=== PATIENT | female | born 1960 | race Caucasian/White ===

== ENCOUNTER 2020-01-22 16:58 | Inpatient (IN) | payer MEDICARE, MEDICAID, OTHER ==
[~2020-01-22 16:58] MED LIST: EPINEPHrine 1 MG/10 ML Abboject SYRINGE ONE; Heparin 1,000 UNITS/ML VIAL ONE
[2020-01-22] MEDS ORDERED: Rocuronium Bromide 10 MG/ML (10ML VIAL) ONE (17:15)
[2020-01-22] MEDS ORDERED: Ketamine 50 MG/ML (10ML VIAL) ONE (17:15)
--- NOTE | 2020-01-22 17:24 | CT ---
CT BRAIN: Date: 01-22-2020 Provided Clinical History: Altered mental status. FINDINGS: The ventricular system appears normal in size and morphology. There is no evidence for intracranial h emorrhage or mass effect. The extracranial soft tissues and osseous structures demonstrate an unremar kable CT appearance. IMPRESSION: No evidence for intracranial hemorrhage or mass effect. POS: ODALYS
[2020-01-22] MEDS ORDERED: Norepinephrine 8 MG/0.9% NS 250 ML ONE (17:37)
[2020-01-22] MEDS ORDERED: Acetaminophen 650 MG Suppository ONE (17:46)
[2020-01-22] MEDS ORDERED: Tranexamic Acid 1,000 MG/10 ML VIAL ONE (17:48)
[2020-01-22] MEDS ORDERED: Pantoprazole 40 MG VIAL ONE (17:48)
[2020-01-22 17:58] LABS: Actual Bicarbonate (HCO3a) 25.3 mEq/L (22-28); CO2 Tension 39.5 mmHg (35.0-45.0); Calcium, Ionized (arterial) 1.06 mmol/L (1.12-1.30); Hemoglobin (Hb) 13.1 g/dL (12.0-16.0); O2 Tension (PaO2), arterial 107.4 mmHg (> 80.0); Potassium - ABG Lab 3.85 mmol/L (3.70-5.30); Puncture Site LBA; pH, Arterial 7.43 (7.35-7.45)
[2020-01-22] MEDS ORDERED: Cefepime 2 GM VIAL ONE (18:00)
[2020-01-22] MEDS ORDERED: Octreotide Acetate 1,250 MCG in Sodium Chloride 0.9% 250 ML 250 ML IVPB SCH (18:00)
[2020-01-22 18:04] LABS: ALV-art Gradient 199.725 (0-20)
[2020-01-22 18:24] LABS: Mean Corpuscular HGB CONC 32.3 g/dL (32.0-36.0); Mean Corpuscular Hemoglobin 29.5 pg (27.0-31.0); Mean Corpuscular Volume 91.3 fL (78.0-98.0); Mean Platelet Volume 8.1 fL (7.4-10.4); Platelet Count 542 thou/uL (130-400); RBC Distribution Width 13.3 % (11.5-14.5); Red Blood Cell (RBC) Count 3.71 mill/uL (4.20-5.40); White Blood Cell (WBC) Count 22.5 thou/uL (4.8-10.8)
[2020-01-22 18:25] LABS: INR-International Normal Ratio 1.4; PTT 28.3 sec (22.9-36.1); Prothrombin Time 17.3 sec (12.0-14.7)
--- NOTE | 2020-01-22 18:26 | RAD ---
PORTABLE CHEST: Date: 01-22-2020 Provided Clinical History: Dyspnea FINDINGS: Comparison 01-07-2020. Cardiac and mediastinal silhouette is unchanged in appearance. Vascular calcifications involving the aortic arch. Endotracheal tube is noted, the tip of which projects proximal to the azucena. Enteric ca theter is noted, the tip of which overlies the left upper quadrant. No focal consolidation, pleural f luid, or pneumothorax apparent with limitations due to the supine nature of the study. IMPRESSION: No evidence for an acute cardiopulmonary process. POS: OADLYS
[2020-01-22 18:40] LABS: ALT (SGPT) Less than 7 U/L (8-55); AST (SGOT) 5 U/L (5-34); Albumin 2.3 g/dL (3.5-5.0); Alkaline Phosphatase 87 U/L (40-110); Anion Gap 19 mmol/L (10-20); BUN (Urea Nitrogen) 32 mg/dL (9.8-20.1); Bilirubin, Total 0.6 mg/dL (0.2-1.2); CK (CPK) 12 U/L (29-168); Calc. Creatinine Clearance 0 mL/min (70-130); Calcium 6.7 mg/dL (7.8-10.44); Carbon Dioxide 19 mmol/L (22-29); Chloride 112 mmol/L (98-107); Estimated GFR-MDRD 20; Globulin 2.2 g/dL (2.4-3.5); Potassium 3.1 mmol/L (3.5-5.1); Protein, Total 4.5 g/dL (6.0-8.3); Sodium 147 mmol/L (136-145)
[2020-01-22 18:43] LABS: Glucose 481 mg/dL (70-105)
[2020-01-22 18:48] LABS: Band 17 % (5-11); Lymphocytes 3 % (21-51); MDiff Complete? YES; Monocytes 11 % (0-10); Neutrophil 69 % (42-75); Platelet Morphology Comment Appears Increased; Polychromasia SLIGHT = 2-3 cells (100X) (0-2/hpf)
[2020-01-22 18:50] LABS: Bacteria/HPF 2+ HPF (None Seen); Bilirubin Negative (Negative); Blood, Urine 2+ (Negative); Clarity Extra Turbid (Clear); Glucose, Urine (Dipstick) 500 mg/dL (Negative); Ketone, Urine Trace mg/dL (Negative); Leukocyte 500 Leu/uL (Negative); Nitrite Negative (Negative); Protein, Urine (Dipstick) 600 mg/dL (Neg-Trace); RBC/HPF Greater than 50 HPF (0-3); Squamous Epithelial 0-3 HPF (0-3); Urobilinogen Normal mg/dL (Less than 2); WBC/HPF Greater than 50 HPF (0-3); pH, Urine 6.5 (5.0-9.0)
[2020-01-22 19:04] LABS: CKMB 0.4 ng/mL (0-6.6)
[2020-01-22] MEDS ORDERED: Potassium Chloride 20 MEQ TAB ONE (19:10)
[2020-01-22] MEDS ORDERED: Electrolyte Replacement Protoc 1 EACH EACH IVPB PRN (20:53)
[2020-01-22] MEDS ORDERED: Norepinephrine 8 MG/0.9% NS 250 ML IVPB PRN (20:53)
[2020-01-22] MEDS ORDERED: Ventilator Sedation Protocol 1 EACH FS SCH (20:53)
[2020-01-22] MEDS ORDERED: Morphine 2 MG/ML SYRINGE SLOW IVP PRN (20:57)
[2020-01-22] MEDS ORDERED: Propofol BOLUS 1,000 MG/100 ML VIAL IV PRN (20:57)
[2020-01-22] MEDS ORDERED: DISCONTINUE PREVIOUS NARCOTIC PAIN MEDICATIONS AND BENZODIAZEPINES FS SCH (20:57)
[2020-01-22] MEDS ORDERED: fentaNYL Citrate/PF 2,000 MCG in Sodium Chloride 0.9% 60 ML IV SCH (20:57)
[2020-01-22] MEDS ORDERED: Lorazepam 2 MG/ML VIAL SLOW IVP PRN (20:57)
[2020-01-22] MEDS ORDERED: Fentanyl BOLUS 250 ML IVPB PRN (20:57)
[2020-01-22] MEDS ORDERED: Potassium Phosphate 9 MMOL in Sodium Chloride 0.9% 100 ML IVPB PRN (20:59)
[2020-01-22] MEDS ORDERED: Magnesium 2 GM/50 ML 2 GM in Premix Bag 1 BAG IVPB PRN (20:59)
[2020-01-22] MEDS ORDERED: Potassium Phosphate 15 MMOL in Sodium Chloride 0.9% 250 ML 250 ML IV PRN (20:59)
[2020-01-22] MEDS ORDERED: Potassium Chloride 40 MEQ in Premix Bag 1 BAG IVPB PRN (20:59)
[2020-01-22] MEDS ORDERED: Potassium Chloride 40 MEQ in Sodium Chloride 0.9% 250 ML 250 ML IVPB PRN (20:59)
[2020-01-22] MEDS ORDERED: PHOS-NAK 1 PKT PACK PO PRN ×2 (20:59)
[2020-01-22] MEDS ORDERED: Magnesium Oxide 400 MG TAB PO PRN ×2 (20:59)
[2020-01-22] MEDS ORDERED: Potassium Phosphate 12 MMOL in Sodium Chloride 0.9% 250 ML 250 ML IV PRN (20:59)
[2020-01-22] MEDS ORDERED: ELECTROLYTE REPLACEMENT PROTOCOL FS PRN (20:59)
[2020-01-22] MEDS ORDERED: Potassium Chloride 20 MEQ TAB PO PRN (20:59)
[2020-01-22] MEDS ORDERED: HUMULIN R 100 UNITS in Sodium Chloride 0.9% 100 ML IVPB SCH (21:15)
[2020-01-22 21:36] LABS: Actual Bicarbonate (HCO3a) 20.6 mEq/L (22-28); Base Excess (BEa) -0.7 mEq/L (-2.0 to +3.0); Calcium, Ionized (arterial) 1.02 mmol/L (1.12-1.30); Carboxyhemoglobin (COHb) 0.9 gm% (0.0-3.0); O2 Tension (PaO2), arterial 87.5 mmHg (> 80.0); Potassium - ABG Lab 3.39 mmol/L (3.70-5.30); pH, Arterial 7.53 (7.35-7.45)
[2020-01-22] MEDS: fentaNYL Citrate/PF 2,000 MCG in Sodium Chloride 0.9% 60 ML IV SCH (21:38)
--- NOTE | 2020-01-22 21:44 | PDOC.HHP ---
Hospitalist HPI - History of Present Illness uncounscious History of Present Illness: Patient has duplicate chart. H&P based on EMS report, ED report because patient unresponsive and could not reach family. 59yo F w/ MHx of recurrent admission for nausea/vomitting associated with diabetic gastroparesis, gastritis, duodenitis, DJD; CVA with residual left weakness, CAD s/p stent placement, medication nonadherence who was brought by EMS after found her unconscious foaming from the mouth. Based on report , patient was at baseline at around 4pm. At 5pm, was found by unconscious, foaming from mouth, so EMS was called. 80% on room air, started on nonrebreather and brought to the ED. On encounter intubated and not responsive despite not being sedated. ED Course: In the ED, unresponsive, hypotensive, intubated, central and arterial lines placed, initially on levophed but after IVF HD stable without pressors. OGT yielded 1.1L of dark fluid. She was admisnitered octreotide and admitted to the ICU for further management. Hospitalist ROS - Review of Systems ROS unobtainable: due to mental status - Medication Medications: Active Medications Generic Name Dose Route Start Last Admin Trade Name Freq PRN Reason Stop Dose Admin Vancomycin HCl 2 gm/ Sodium 500 mls @ 250 mls/hr 01/22/20 18:15 01/22/20 21: 26 Chloride IVPB 01/22/20 22:00 Not Given NOW [facility] Hospitalist History - Past Medical History Source: old records (PAST MEDICAL HISTORY: 1. Diabetic gastroparesis. 2. Distal esophagitis. 3. Duodenitis. 4. Gastroesophageal reflux. 5. History of myocardial infarction. 6. Diabetes mellitus, type 2 with peripheral neuropathy. 7. Hypothyroidism. 8. Hyperlipidemia. 9. Hypertension. 10. Degenerative joint disease. 11. History of CVA with left-sided weakness. 12. Chronic obstructive pulmonary disease. 13. Chronic kidney disease. 1. Status post bilateral tubal ligation. 2. Status post cardiac catheterization. 3. Status post carpal tunnel release. 4. 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 5. Status post EGD showing esophagitis and duodenitis. CURRENT MEDICATIONS: 1. Gabapentin 1600 mg p.o. b.i.d. 2. Hydralazine 50 mg p.o. t.i.d. 3. Hydrocodone 10/325 mg 1 tablet p.o. q.6 hours p.r.n. 4. Glargine insulin 72 units subcutaneously at bedtime. 5. Atrovent HFA 2 puffs inhaled q.4 hours p.r.n. 6. DuoNeb 3 mL nebulized q.4 hours p.r.n. 7. Lorazepam 1 mg p.o. at bedtime p.r.n. 8. Metoprolol tartrate 25 mg p.o. b.i.d. 9. Singulair 10 mg p.o. b.i.d. 10. Nitroglycerin 4.1 g sprayed orally p.r.n. chest pain. 11. Pravachol 80 mg p.o. at bedtime. 12. Seroquel 100 mg p.o. at bedtime. 13. Eliquis 5 mg p.o. b.i.d. 14. Enteric-coated aspirin 81 mg p.o. daily. 15. Levothyroxine 112 mcg p.o. daily. 16. Reglan 10 mg p.o. t.i.d. p.r.n. 17. Protonix 40 mg p.o. b.i.d. ALLERGIES: 1. FENTANYL. 2. IBUPROFEN. 3. SULFA. FAMILY HISTORY: Positive for coronary artery disease and diabetes mellitus. SOCIAL HISTORY: Resides in [place], [place]. Smokes up to a pack of cigarettes daily. Occasional alcohol use. No illicit drug use. Disabled. REVIEW OF SYSTEMS: CONSTITUTIONAL: Negative for weight loss or gain, ability to conduct usual activities. SKIN: Negative for rash, itching.) - Exam General - other findings: intubated, unresponsive, morbidly obese Eye: PERRL, anicteric sclera Eye - other findings: pupils 3mm reactive to light ENT: normocephalic atraumatic Neck - other findings: no lymphadenopathy Heart: no murmur, no rubs, irregular Respiratory: CTAB, no wheezes, no rales, no ronchi Gastrointestinal: soft, non-distended, normal bowel sounds Extremities: 1+ LE edema Hospitalist Results - Labs Result Diagrams: 01/22/20 18:07 01/22/20 18:07 Lab results: WBC 22.5 thou/uL (4.8-10.8) H 01/22/20 18:07 Hgb 11.0 g/dL (12.0-16.0) L 01/22/20 18:07 Hct 33.9 % (36.0-47.0) L 01/22/20 18:07 MCV 91.3 fL (78.0-98.0) 01/22/20 18:07 Plt Count 542 thou/uL (130-400) H 01/22/20 18:07 Band Neuts % (Manual) 17 % (5-11) H 01/22/20 18:07 ABG pH 7.43 (7.35-7.45) 01/22/20 17:55 ABG pCO2 39.5 mmHg (35.0-45.0) 01/22/20 17:55 ABG pO2 107.4 mmHg (> 80.0) H 01/22/20 17:55 Sodium 147 mmol/L (136-145) H 01/22/20 18:07 Potassium 3.1 mmol/L (3.5-5.1) L 01/22/20 18:07 Chloride 112 mmol/L (98-107) H 01/22/20 18:07 Carbon Dioxide 19 mmol/L (22-29) L 01/22/20 18:07 BUN 32 mg/dL (9.8-20.1) H 01/22/20 18:07 Creatinine 2.47 mg/dL (0.6-1.1) H 01/22/20 18:07 Glucose 481 mg/dL (70-105) H 01/22/20 18:07 Lactic Acid 3.5 mmol/L (0.5-2.2) H 01/22/20 18:07 Calcium 6.7 mg/dL (7.8-10.44) L 01/22/20 18:07 Total Bilirubin 0.6 mg/dL (0.2-1.2) 01/22/20 18:07 AST 5 U/L (5-34) 01/22/20 18:07 ALT Less than 7 U/L (8-55) L 01/22/20 18:07 Alkaline Phosphatase 87 U/L (40-110) 01/22/20 18:07 Creatine Kinase 12 U/L (29-168) L 01/22/20 18:07 CK-MB (CK-2) 0.4 ng/mL (0-6.6) 01/22/20 18:07 Troponin I 0.305 ng/mL (< 0.028) H* 01/22/20 18:07 B-Natriuretic Peptide 158.4 pg/mL (0-100) H 01/22/20 18:07 Serum Total Protein 4.5 g/dL (6.0-8.3) L 01/22/20 18:07 Albumin 2.3 g/dL (3.5-5.0) L 01/22/20 18:07 Urine Ketones Trace mg/dL (Negative) A 01/22/20 17:35 Urine Blood 2+ (Negative) A 01/22/20 17:35 Urine Nitrite Negative (Negative) 01/22/20 17:35 Ur Leukocyte Esterase 500 Tanner/uL (Negative) A 01/22/20 17:35 Urine RBC Greater than 50 HPF (0-3) A 01/22/20 17:35 Urine WBC Greater than 50 HPF (0-3) A 01/22/20 17:35 Ur Squamous Epith Cells 0-3 HPF (0-3) 01/22/20 17:35 Urine Bacteria 2+ HPF (None Seen) A 01/22/20 17:35 - EKG Interpretation EKG: sinus tachycardia with PACs, RBBB (old); inferolateral and anteroseptal ST depression - Radiology Interpretation Chest x-ray Status: report reviewed by me Additional Comment: no acute cardiopulmonary process CT scan - head Status: report reviewed by me Additional Comment: no acute process Hospitalist H&P A/P - Problem (1) Sepsis Code(s): A41.9 - SEPSIS, UNSPECIFIED ORGANISM Status: Acute (2) Acute respiratory failure with hypoxia Code(s): J96.01 - ACUTE RESPIRATORY FAILURE WITH HYPOXIA Status: Acute (3) Upper GI bleed Code(s): K92.2 - GASTROINTESTINAL HEMORRHAGE, UNSPECIFIED Status: Acute (4) Aspiration pneumonia Code(s): J69.0 - PNEUMONITIS DUE TO INHALATION OF FOOD AND VOMIT Status: Acute (5) COPD (chronic obstructive pulmonary disease) Status: Acute (6) Cerebrovascular accident (CVA) with involvement of left side of body Code(s): I63.9 - CEREBRAL INFARCTION, UNSPECIFIED Status: Acute (7) Nonadherence to medication Code(s): Z91.14 - PATIENT'S OTHER NONCOMPLIANCE WITH MEDICATION REGIMEN Status : Acute - Plan Plan: #sepsis #acute encephalopathy #aspiration pneumonia/pneumonitis #complicated UTI -qSOFA 3/3 -on encounter, GCS 3; acute encephalopathy hypoxic vs. toxic vs. infectious -multiple recent presentation with nausea/vomiting due to gastroparesis; this presentation was found foaming from mouth -presented febrile Tmax 103F; UA c/w UTI -CT head and CXR showing no acute processes -well's score low risk pulmonary embolism; blood pressure responded to fluids -attempted to reach family multiple times -COVID pending -vanc, zosyn -procalcitonin -COVID PCR -serum and urine drug screens -NS IVF match I/O -follow up on cultures -pulm consulted #UGI bleed -NGT suctioned 1.1L of black fluid on presentation -HgB 11; baseline 10-11 therefore hypotension unlikely due to hypovolemia; HD stable after fluid resuscitation -unknown indication for eliquis however history of nonadherence -pantoprazole IVP 80 once, then 40mg IVP q12h -H&H q8h -IVF -GI consulted #troponinemia -EKG showing rate controlled afib with signs of inferolateral and anteroseptal ischemia -may be demand due to sepsis -hold eliquis,aspirin due to bleed -trend trop, EKG #T2DM insulin drip; goal < 180 #CAD s/p stent hold antihtn due to labile blood pressure reconcile medications #dispo/PPx -Full code. attempted to reach family. Will attempt again tomorrow -GI PPx: on therapeutic PPI -DVT PPx: SCDs due to GI bleed
[2020-01-22] MEDS ORDERED: Pantoprazole 40 MG VIAL IVP SCH (21:45)
[2020-01-22] MEDS ORDERED: Piperacillin/Tazobactam 3.375 GM in Sodium Chloride 0.9% 100 ML IVPB SCH (21:45)
[2020-01-22 21:46] LABS: CO2 Tension 25.5 mmHg (35.0-45.0); Puncture Site ART LINE
[2020-01-22 21:47] LABS: ALV-art Gradient 165.825 (0-20)
[2020-01-22] MEDS: Propofol 1,000 MG/100 ML VIAL IV PRN (22:03)
[2020-01-22] MEDS: Sodium Chloride 0.9% 1,000 ML IV SCH (23:09)
[2020-01-22 23:12] LABS: CKMB 0.9 ng/mL (0-6.6)
[2020-01-22 23:22] LABS: Lactic Acid 1.6 mmol/L (0.5-2.2)
[2020-01-22] MEDS ORDERED: Piperacillin/Tazobactam 2.25 GM in Sodium Chloride 0.9% 100 ML IVPB SCH (23:59)
[2020-01-23] MEDS ORDERED: Albuterol 200 PUFF (6.7GM INHALER) INH PRN (00:25)
[2020-01-23] MEDS ORDERED: Albuterol 200 PUFF (6.7GM INHALER) INH SCH (01:00)
[2020-01-23] MEDS: Piperacillin/Tazobactam 2.25 GM in Sodium Chloride 0.9% 100 ML IVPB SCH ×4 (05:19→21:24)
[2020-01-23 05:24] LABS: ALT (SGPT) Less than 7 U/L (8-55); AST (SGOT) 5 U/L (5-34); Albumin 2.8 g/dL (3.5-5.0); Alkaline Phosphatase 92 U/L (40-110); Anion Gap 16 mmol/L (10-20); BUN (Urea Nitrogen) 42 mg/dL (9.8-20.1); Bilirubin, Total 1.1 mg/dL (0.2-1.2); Calc. Creatinine Clearance 28 mL/min (70-130); Calcium 7.6 mg/dL (7.8-10.44); Carbon Dioxide 27 mmol/L (22-29); Chloride 110 mmol/L (98-107); Estimated GFR-MDRD 17; Globulin 2.9 g/dL (2.4-3.5); Glucose 215 mg/dL (70-105); Potassium 3.1 mmol/L (3.5-5.1); Protein, Total 5.7 g/dL (6.0-8.3); Sodium 150 mmol/L (136-145)
[2020-01-23 05:54] LABS: Hemoglobin 12.2 g/dL (12.0-16.0); Mean Corpuscular HGB CONC 34.3 g/dL (32.0-36.0); Mean Corpuscular Volume 87.6 fL (78.0-98.0); Mean Platelet Volume 8.4 fL (7.4-10.4); Platelet Count 377 thou/uL (130-400); RBC Distribution Width 13.9 % (11.5-14.5); Red Blood Cell (RBC) Count 4.06 mill/uL (4.20-5.40); White Blood Cell (WBC) Count 20.7 thou/uL (4.8-10.8)
[2020-01-23] MEDS ORDERED: Mometasone 200 MCG/Formoterol 5 MCG 120 PUFF INHALER INH SCH (06:30)
[2020-01-23 08:07] LABS: Actual Bicarbonate (HCO3a) 22.9 mEq/L (22-28); Analyzer IN Cardio OR; Base Excess (BEa) 1.6 mEq/L (-2.0 to +3.0); CO2 Tension 26.9 mmHg (35.0-45.0); Calcium, Ionized (arterial) 1.05 mmol/L (1.12-1.30); Carboxyhemoglobin (COHb) 1.5 gm% (0.0-3.0); Hemoglobin (Hb) 12.6 g/dL (12.0-16.0); O2 Tension (PaO2), arterial 71.4 mmHg (> 80.0)
[2020-01-23] MEDS: Pantoprazole 40 MG VIAL IVP SCH ×2 (08:14→21:25)
[2020-01-23] MEDS: Sodium Chloride 0.9% 1,000 ML IV SCH (08:14)
[2020-01-23 08:21] LABS: Puncture Site RRA; pH, Arterial 7.55 (7.35-7.45)
[2020-01-23 08:22] LABS: ALV-art Gradient 73.225 (0-20)
[2020-01-23 08:40] LABS: Band 3 % (5-11); Lymphocytes 7 % (21-51); MDiff Complete? YES; Monocytes 6 % (0-10); Neutrophil 84 % (42-75); Platelet Morphology Comment Appears Adequate; RBC Morphology Normal
[2020-01-23] MEDS ORDERED: hydrALAZINE 20 MG/ML VIAL SLOW IVP PRN (08:51)
--- NOTE | 2020-01-23 09:13 | CON ---
DATE OF CONSULTATION: HISTORY OF PRESENT ILLNESS: Rajwinder Delgado is a 59-year-old female, who is intubated in the vent, sedated, unable to get any significant history. Apparently, she was found down by her , though I tried to contact a number that apparently was a wrong number. She came into the hospital unresponsive, frothing, hypoxic, sats were in the 80s. She is intubated. She is now in the ICU. She has a coronavirus test pending. She was given some IV fluids, started on Levophed. We will try and get additional information as family arrives. Unfortunately, the number is incorrect. PAST MEDICAL HISTORY: Additional information at this stage states she might have a history of diabetes, reflux, ND, hypothyroidism, neuropathy, lipidemia, hypertension, CVA, COPD, and renal failure. PAST SURGICAL HISTORY: Previous surgeries included endoscopy, cardiac cath. MEDICATIONS: A long list of medicine that was prescribed, apparently, it is unclear where this list was got from, but it includes several diabetic medications, we will have to try and reassess once family arrives. PHYSICAL EXAMINATION: GENERAL: She is encephalopathic. VITAL SIGNS: Sats are 98%, respiratory rate 24, pulse 80, temperature 98, blood pressure . CHEST: Decreased breath sounds. No wheezing. CARDIAC: Normal S1, S2. No gallops. ABDOMEN: No masses. LABORATORY AND DIAGNOSTIC DATA: X-ray shows a questionable right-sided infiltrate. White count 20,000, H and H 12 and 35. PO2 of 71, pCO2 of 26, pH of 7.55, rate of 14, 30%, PEEP of 5. Sodium 150, creatinine 2.9, and glucose 138. CT brain done, showed no acute changes. ASSESSMENT AND PLAN: 1. Status post metabolic encephalopathy, hypotension, shock. 2. History of apparently diabetes, coronary artery disease, reflux. We have to get additional information from the family. Otherwise, in the meantime, continue present antibiotics, supportive care, nutrition, PT, serial exam. This is a 45-minute critical care time. Job ID: [id number]
[2020-01-23] MEDS: Propofol 1,000 MG/100 ML VIAL IV PRN ×2 (09:43→21:25)
[2020-01-23] MEDS: Sodium Chloride 0.45% 1,000 ML IV SCH (09:45)
--- NOTE | 2020-01-23 09:54 | PDOC.HOSPP ---
- Subjective Encounter Date: 01/23/20 Encounter Time: 07:00 Subjective: No overnight events. This morning, intubated, alert and calm but not following commands to squeeze finger or follow finger with eyes. - Objective Vital Signs & Weight: Vital Signs (12 hours) Temp Pulse Resp Pulse Ox 01/23/20 08:00 97.7 F 14 01/23/20 07:35 69 01/23/20 07:31 99 01/23/20 06:00 14 01/23/20 04:00 98.0 F 14 01/23/20 02:06 68 01/23/20 02:00 14 01/23/20 01:00 98.8 F 01/23/20 00:09 70 01/23/20 00:00 10 L 01/22/20 22:00 10 L Weight Weight 183 lb 6.793 oz Most Recent Monitor Data Heart Rate from ECG 67 NIBP 187/96 NIBP BP-Mean 126 Respiration from ECG 19 SpO2 99 I&O: 01/22/20 01/23/20 01/24/20 06:59 06:59 06:59 Intake Total 2058 90 Output Total 240 140 Balance 1818 -50 Result Diagrams: 01/23/20 04:25 01/23/20 04:25 Additional Labs: Accuchecks 01/23/20 01/23/20 01/23/20 08:24 06:39 05:36 POC Glucose 178 H 138 H 190 H 01/23/20 01/23/20 01/23/20 04:29 03:43 02:17 POC Glucose 197 H 282 H 285 H 01/23/20 01/22/20 01/22/20 01:12 23:27 21:49 POC Glucose 311 H 357 H 465 H Hospitalist ROS - Review of Systems ROS unobtainable: due to endotracheal tube - Medication Medications: Active Medications Generic Name Dose Route Start Last Admin Trade Name Freq PRN Reason Stop Dose Admin Fentanyl Citrate 2,000 mcg/ 100 mls @ 0 mls/hr 01/22/20 17:46 01/22/20 21:38 Sodium Chloride IV 02/21/20 17:46 100 mls INF ELIA Administration Protocol Per Protocol Piperacillin Sod/Tazobactam 100 mls @ 200 mls/hr 01/23/20 04:00 01/23/20 09: 43 Sod 2.25 gm/ Sodium Chloride IVPB 100 mls 0400,1000,1600,2200 ELIA Administration Sodium Chloride 1,000 mls @ 50 mls/hr 01/23/20 08:45 01/23/20 09:45 1/2 Normal Saline IV 1,000 mls .Q20H ELIA Administration Pantoprazole Sodium 40 mg 01/23/20 09:00 01/23/20 08:14 Protonix IVP 40 mg Q12HR ELIA Administration Propofol 1,000 mg 01/22/20 20:57 01/23/20 09:43 Diprivan IV 02/21/20 20:57 1,000 mg INF PRN Administration TO ACHIEVE GOAL RASS Protocol - Exam General Appearance: NAD General - other findings: intubated, drowsy Eye: PERRL ENT: normocephalic atraumatic Neck: no JVD Heart: RRR, no murmur, no gallops Respiratory: CTAB, no wheezes, no rales, no ronchi Gastrointestinal: soft, non-tender, non-distended Extremities: 1+ LE edema Psychiatric - other findings: drowsy, not following commands Hosp A/P (1) Sepsis Code(s): A41.9 - SEPSIS, UNSPECIFIED ORGANISM Status: Acute (2) Acute respiratory failure with hypoxia Code(s): J96.01 - ACUTE RESPIRATORY FAILURE WITH HYPOXIA Status: Acute (3) Upper GI bleed Code(s): K92.2 - GASTROINTESTINAL HEMORRHAGE, UNSPECIFIED Status: Acute (4) Aspiration pneumonia Code(s): J69.0 - PNEUMONITIS DUE TO INHALATION OF FOOD AND VOMIT Status: Acute (5) COPD (chronic obstructive pulmonary disease) Status: Acute (6) Cerebrovascular accident (CVA) with involvement of left side of body Code(s): I63.9 - CEREBRAL INFARCTION, UNSPECIFIED Status: Acute (7) Nonadherence to medication Code(s): Z91.14 - PATIENT'S OTHER NONCOMPLIANCE WITH MEDICATION REGIMEN Status : Acute - Plan #acute encephalopathy #aspiration pneumonia #complicated UTI -qSOFA 1/3 -CXR showing increased right lower filed opacity (01/22); however procalcitonin not c/w bacterial pneumonia; -pending cultures -attempted to reach family multiple times -COVID pending -continue vanc, zosyn -1/2 NS IVF due to acute hyponatremia; match I/O -follow up on cultures -PCCM onboard #UGI bleed -NGT suctioned 1.1L of black fluid on presentation; about 100cc black aspirate ( 01/22) -HgB 11->12; baseline 10-11 therefore hypotension unlikely due to hypovolemia; HD stable after fluid resuscitation -unknown indication for eliquis however history of nonadherence -pantoprazole IVP 80 once, then 40mg IVP q12h -stop octreotide -pending GI evaluation #HTN started labetalol and hydralazine pending medication reconcilation #troponinemia -EKG showing rate controlled afib with signs of inferolateral and anteroseptal ischemia; trop x 2 stable -may be demand due to sepsis -hold eliquis,aspirin (assuming patient was taking, pending reconciliation) due to bleed #T2DM insulin drip; goal < 180 #CAD s/p stent reconcile medications #dispo/PPx -Full code. attempted to reach family but no answer -GI PPx: on therapeutic PPI -DVT PPx: SCDs due to GI bleed
[2020-01-23] MEDS ORDERED: Polyethylene Glycol 3350 17 GM Packet PO SCH (10:15)
[2020-01-23 10:57] LABS: Potassium 4.4 mmol/L (3.5-5.1)
--- NOTE | 2020-01-23 12:04 | RAD ---
CHEST 1 VIEW: INDICATION: History of daily CCU examination while on a ventilator. COMPARISON: Prior study of 01/22/2020. FINDINGS: There is a new hazy airspace opacity involving the right lower lobe which may reflect subsegmental vo lume loss, aspiration, or pneumonia. The left lung is clear. Heart size is accentuated by exam tech nique. Gastric catheter projects below the left hemidiaphragm beyond the field of view. ET tube tip is unchanged. No pneumothorax is evident. IMPRESSION: 1. New hazy airspace opacity in the right lung base may reflect atelectasis, aspiration, or pneumoni a. Continued followup is recommended. 2. Stable tubes and lines. 3. No pneumothorax. POS: BH
[2020-01-23 13:46] LABS: SARS-CoV-2 MS2 Positive; SARS-CoV-2 N Gene Negative; SARS-CoV-2 S Gene Negative; SARS-CoV-2 orf1ab Negative
[2020-01-23] MEDS ORDERED: Vancomycin HCl 750 MG in Sodium Chloride 0.9% 250 ML 250 ML IVPB SCH (17:00)
--- NOTE | 2020-01-23 18:46 | CON ---
DATE OF CONSULTATION: 01/23/2020 CHIEF COMPLAINT: Coffee-ground material from the OG tube. HISTORY OF PRESENT ILLNESS: Ms. Delgado is a 59-year-old woman who was found down at home by her . She was brought into the emergency room and intubated and placed on mechanical ventilation and admitted to the intensive care unit. She is found to have elevated white blood cell count and elevated creatinine, elevated sodium and hypotensive shock presumably from sepsis. During her evaluation in the emergency room, she had an OG tube placed which apparently returned a liter of dark fluid last night. GI was consulted to evaluate for GI bleed. She is being ruled out for COVID as well. PAST MEDICAL HISTORY: Diabetic gastroparesis, esophagitis, gastroesophageal reflux, diabetes mellitus, COPD, history of stroke with left-sided weakness, hypothyroidism, hyperlipidemia, hypertension, degenerative joint disease, and chronic kidney disease. PAST SURGICAL HISTORY: Tubal ligation, carpal tunnel release. She had esophagogastroduodenoscopy by Dr. Hayes on 12/24/2019, that showed grade C erosive esophagitis and mild duodenitis. She was started on proton pump inhibitor twice daily and Reglan at that point. FAMILY HISTORY: Negative for GI malignancy. SOCIAL HISTORY: She smokes a pack a day. Occasional alcohol. No drugs. ALLERGIES: IBUPROFEN, SULFA, AND FENTANYL. MEDICATIONS: Prior to admission include; 1. Raglan. 2. Aspirin 81 mg daily. 3. Gabapentin. 4. Hydralazine. 5. [place]. 6. DuoNeb. 7. Levothyroxine. 8. Lorazepam. 9. Metoprolol. 10. Singulair. 11. Seroquel. 12. Eliquis 5 mg twice daily. 13. Insulin. 14. Atrovent. 15. Nitroglycerin. 16. Protonix. 17. Pravastatin. 18. Florastor. Current inpatient medications include; 1. Protonix 40 mg IV q.12 hours. 2. Insulin. 3. Vancomycin. 4. Zosyn. REVIEW OF SYSTEMS: Unobtainable as she is sedated on the vent. PHYSICAL EXAMINATION: VITAL SIGNS: Temperature 97.7, pulse 66, and blood pressure 160/69. GENERAL: She is sedated on the vent. She has an endotracheal tube and orogastric tube in place. HEENT: Her eyes have no scleral icterus. No cervical or supraclavicular lymphadenopathy. LUNGS: Clear to auscultation bilaterally. HEART: Regular rate and rhythm without murmur. ABDOMEN: Soft, nontender, and nondistended. Bowel sounds are present. EXTREMITIES: No lower extremity edema. RECTAL: Reveals light brown stool in the brief. LABORATORY DATA: White blood cell count 20.7, hemoglobin 12.2, and platelets 377. INR 1.4. Sodium 150, potassium 3.1, chloride 110, CO2 of 27, BUN 42, creatinine 2.77, bilirubin 1.1, AST 5, ALT 7, alkaline phosphatase 92, albumin 2.8, and TSH 1.24. IMAGING STUDIES: Showed a chest x-ray which showed hazy airspace opacity in the right lung base. IMPRESSION: 1. Gastrointestinal bleed. She reportedly had dark material in her OG aspirate last night. Currently, she has light brown stool without any evidence of overt bleeding. Her hemoglobin increased from 11 to 12.2, overnight. 2. Acute respiratory failure and mental status change and sepsis syndrome and acute renal failure. She is being ruled out for COVID as well. RECOMMENDATIONS: 1. She is on proton pump inhibitor. 2. Please call if GI can be of assistance if there is further evidence of significant overt GI bleeding. I will sign off for now. Job ID: [id number]
[2020-01-23] MEDS: MEROPENEM 1 GM/50 ML 1 GM in Premix Bag 1 BAG IVPB SCH (21:25)
[2020-01-24] MEDS: fentaNYL Citrate/PF 2,000 MCG in Sodium Chloride 0.9% 60 ML IV SCH (01:29)
[2020-01-24] MEDS: Piperacillin/Tazobactam 2.25 GM in Sodium Chloride 0.9% 100 ML IVPB SCH (04:29)
[2020-01-24] MEDS: Sodium Chloride 0.45% 1,000 ML IV SCH ×3 (04:31→18:23)
[2020-01-24] MEDS: MEROPENEM 1 GM/50 ML 1 GM in Premix Bag 1 BAG IVPB SCH ×2 (05:18→18:23)
[2020-01-24 05:45] LABS: Band 3 % (5-11); Hypochromia SLIGHT = 6-15 cells (100X) (0-5/hpf); Lymphocytes 4 % (21-51); MDiff Complete? YES; Mean Corpuscular HGB CONC 32.6 g/dL (32.0-36.0); Mean Corpuscular Hemoglobin 29.1 pg (27.0-31.0); Mean Corpuscular Volume 89.1 fL (78.0-98.0); Mean Platelet Volume 8.6 fL (7.4-10.4); Monocytes 2 % (0-10); Neutrophil 91 % (42-75); Platelet Count 272 thou/uL (130-400); Platelet Morphology Comment Appears Adequate; RBC Distribution Width 13.6 % (11.5-14.5); Red Blood Cell (RBC) Count 4.14 mill/uL (4.20-5.40); White Blood Cell (WBC) Count 20.4 thou/uL (4.8-10.8)
[2020-01-24 05:49] LABS: ALT (SGPT) Less than 7 U/L (8-55); AST (SGOT) 5 U/L (5-34); Albumin 2.8 g/dL (3.5-5.0); Alkaline Phosphatase 97 U/L (40-110); Anion Gap 14 mmol/L (10-20); BUN (Urea Nitrogen) 51 mg/dL (9.8-20.1); Bilirubin, Total 0.8 mg/dL (0.2-1.2); Calc. Creatinine Clearance 34 mL/min (70-130); Calcium 7.8 mg/dL (7.8-10.44); Carbon Dioxide 28 mmol/L (22-29); Chloride 111 mmol/L (98-107); Estimated GFR-MDRD 22; Globulin 2.9 g/dL (2.4-3.5); Glucose 251 mg/dL (70-105); Potassium 3.7 mmol/L (3.5-5.1); Protein, Total 5.7 g/dL (6.0-8.3); Sodium 149 mmol/L (136-145)
[2020-01-24 06:33] LABS: Actual Bicarbonate (HCO3a) 25.2 mEq/L (22-28); Base Excess (BEa) 0.9 mEq/L (-2.0 to +3.0); CO2 Tension 39.3 mmHg (35.0-45.0); Carboxyhemoglobin (COHb) 0.8 gm% (0.0-3.0); Hemoglobin (Hb) 12.7 g/dL (12.0-16.0); O2 Tension (PaO2), arterial 82.4 mmHg (> 80.0); Potassium - ABG Lab 3.58 mmol/L (3.70-5.30); pH, Arterial 7.43 (7.35-7.45)
[2020-01-24 06:36] LABS: ALV-art Gradient 46.725 (0-20); Puncture Site RBRACH
[2020-01-24] MEDS ORDERED: DC Sedation Protocol FS ONE (08:20)
--- NOTE | 2020-01-24 08:39 | PRG ---
DATE OF SERVICE: 01/24/2020 SUBJECTIVE: This morning, the patient is awake, alert, responsive, though still lethargic. OBJECTIVE: VITAL SIGNS: Temperature 97, saturations 98%, blood pressure 192/85. CHEST: Decreased breath sounds. No wheezing. CARDIAC: Normal S1, S2 gallops. ABDOMEN: Soft. LABORATORY AND DIAGNOSTIC DATA: White count 20,000, H and H are 12 and 36. Creatinine is 2.3, BUN is 51. X-ray is clear. Blood gases; pO2 is 82, pCO2 . ASSESSMENT AND PLAN: Respiratory failure, Enterococcus urinary tract infection, metabolic encephalopathy, renal failure, presumably gastrointestinal bleed, though GI signed off. I would minimize medication. Discontinue vancomycin. Discontinue Zosyn. Continue meropenem. Slow hydration. We will wean and extubate. One-half hour of critical care time. Job ID: [id number]
[2020-01-24] MEDS: Pantoprazole 40 MG VIAL IVP SCH (08:56)
--- NOTE | 2020-01-24 09:06 | RAD ---
CHEST 1 VIEW: INDICATION: History of CCU examination on ventilator. COMPARISON: Prior exam dated 01/23/2020. IMPRESSION: The patchy airspace opacity in the right infrahilar region is mildly improved. The patient remains i ntubated with gastric catheter placement. The left lung is clear. Osseous structures are similar-ap pearing. There is an ununited left greater tuberosity fracture that is better seen on today's exam. POS: BH
--- NOTE | 2020-01-24 10:26 | PDOC.HOSPP ---
- Subjective Encounter Date: 01/24/20 Encounter Time: 07:00 Subjective: no overnight events. this morning, extubated, alert but noncooperative. - Objective Vital Signs & Weight: Vital Signs (12 hours) Temp Resp Pulse Ox 01/24/20 08:00 16 01/24/20 07:19 99 01/24/20 07:00 97.8 F 01/24/20 06:00 14 01/24/20 04:00 98.5 F 14 01/24/20 02:00 16 01/24/20 00:00 98.1 F 15 Weight Admit Weight 183 lb Weight 184 lb 4.903 oz Most Recent Monitor Data Heart Rate from ECG 70 NIBP 196/91 NIBP BP-Mean 126 Respiration from ECG 14 SpO2 100 I&O: 01/23/20 01/24/20 01/25/20 06:59 06:59 06:59 Intake Total 8 2556 0 Output Total 240 960 170 Balance 1818 1596 -170 Result Diagrams: 01/24/20 04:10 01/24/20 04:10 Additional Labs: Accuchecks 01/24/20 01/24/20 01/24/20 08:34 06:08 04:27 POC Glucose 191 H 213 H 237 H 01/24/20 01/24/20 01/23/20 01:59 00:08 22:01 POC Glucose 299 H 260 H 195 H 01/23/20 01/23/20 01/23/20 19:44 18:12 16:07 POC Glucose 98 91 120 H 01/23/20 01/23/20 01/23/20 14:12 11:31 09:58 POC Glucose 150 H 180 H 224 H Hospitalist ROS - Medication Medications: Active Medications Generic Name Dose Route Start Last Admin Trade Name Freq PRN Reason Stop Dose Admin Insulin Human Regular 100 101 mls @ 0 mls/hr 01/22/20 21:15 01/24/20 05:17 units/ Sodium Chloride IVPB 101 mls INF ELIA Administration Protocol Titrate Sodium Chloride 1,000 mls @ 100 mls/hr 01/24/20 08:20 01/24/20 08:57 1/2 Normal Saline IV 1,000 mls .Q10H ELIA Administration Pantoprazole Sodium 40 mg 01/23/20 09:00 01/24/20 08:56 Protonix IVP 40 mg Q12HR ELIA Administration Hosp A/P (1) Sepsis Code(s): A41.9 - SEPSIS, UNSPECIFIED ORGANISM Status: Acute (2) Acute respiratory failure with hypoxia Code(s): J96.01 - ACUTE RESPIRATORY FAILURE WITH HYPOXIA Status: Acute (3) Upper GI bleed Code(s): K92.2 - GASTROINTESTINAL HEMORRHAGE, UNSPECIFIED Status: Acute (4) Aspiration pneumonia Code(s): J69.0 - PNEUMONITIS DUE TO INHALATION OF FOOD AND VOMIT Status: Acute (5) COPD (chronic obstructive pulmonary disease) Status: Acute (6) Cerebrovascular accident (CVA) with involvement of left side of body Code(s): I63.9 - CEREBRAL INFARCTION, UNSPECIFIED Status: Acute (7) Nonadherence to medication Code(s): Z91.14 - PATIENT'S OTHER NONCOMPLIANCE WITH MEDICATION REGIMEN Status : Acute - Plan #complicated UTI -extubated (01/23); on 2L NC -pending culture susceptibilities; on meropenem per PCCM, added vanc for more complete coverage of faecalis pending susceptibilities -COVID -ve #UGI bleed -HgB stable -GI evaled, signed off -change pantoprazole to PO, continue to follow #HTN pending medication reconciliation poorly controlled after extubation due to reduced PEEP and sedation -hydralazine scheduled -labetalol IV PRN #troponinemia -EKG showing rate controlled afib with signs of inferolateral and anteroseptal ischemia; trop x 2 stable -may be demand due to sepsis -restarted aspirin; unknown if adherent to eliquis; pending medication reconciliation #T2DM stopped drip; started lantus SC #CAD s/p stent started metoprolol and aspirin; pending medication reconciliation #dispo/PPx -Full code. Care can be deescalated -GI PPx: on therapeutic PPI -DVT PPx: lovenox
[2020-01-24] MEDS ORDERED: Metoclopramide HCl 10 MG TAB PO PRN (10:32)
[2020-01-24] MEDS ORDERED: Insulin Glargine 50 UNITS in Pre-Filled Syringe 1 EACH SC SCH (10:45)
[2020-01-24] MEDS: Labetalol HCl 100 MG/20 ML VIAL SLOW IVP PRN ×3 (12:34→20:21)
[2020-01-24] MEDS: hydrALAZINE 25 MG TAB PO SCH ×2 (15:35→15:50)
[2020-01-24] MEDS: hydrALAZINE 20 MG/ML VIAL SLOW IVP PRN (16:32)
[2020-01-24 16:40] LABS: Vancomycin, Trough 16.7 ug/mL
[2020-01-24] MEDS ORDERED: Vancomycin HCl 750 MG in Sodium Chloride 0.9% 250 ML 250 ML IVPB SCH (17:00)
[2020-01-24] MEDS: Metoprolol Tartrate 25 MG TAB PO SCH (20:23)
--- NOTE | 2020-01-24 20:58 | PQF ---
CLINICAL DOCUMENTATION IMPROVEMENT CLARIFICATION FORM: ICD-10 Updated PLEASE DO AN ADDENDUM TO THE PROGRESS NOTE WITH ANY DOCUMENTATION UPDATES OR ADDITIONS AND CARRY THROUGH TO DC SUMMARY. THANK YOU. DATE: 01/24/20 ATTN: DR. DAIGLE Please exercise your independent, professional judgment in responding to the clarification form. Clinical indicators are provided on the bottom of this form for your review Please check appropriate box(s): [ ] NSTEMI [ ] PR TYPE 2 [ x ] DEMAND ISCHEMIA [ ] Other : [ ] Unable to determine In addition, please specify: Present on Admission (POA): [ x] Yes [ ] No [ ] Unable to determine CLINICAL INDICATORS - SIGNS / SYMPTOMS / LABS / RESULTS AND LOCATION IN EMR ER NOTE: "NSTEMI" H&P: "EKG WITH SIGNS OF INFEROLATERAL AND ANTEROSEPTAL ISCHEMIA" PN 01/22: "TROPONINEMIA- MAY BE DUE TO DEMAND" TROPONINS 01/21: 0.305 / 0.372 RISKS: SEPSIS (H&P) AFIB (H&P) GI BLEED (H&P) H/O CAD (H&P) TREATMENT: SERIAL LABS NITRO SPRAY PRN (HOME MED) ECOTRIN (START 01/24) 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 All Rights Reserved [email or web address] [email or web address] Cell [facility]ITAL[facility]
[2020-01-24] MEDS ORDERED: Vancomycin 1 GM in Premix Bag 1 BAG IVPB SCH (21:00)
[2020-01-24] MEDS ORDERED: Dextrose 5% in Water 1,000 ML IV PRN (22:09)
[2020-01-24] MEDS ORDERED: HumaLOG 300 UNITS/3 ML VIAL SC PRN (22:09)
[2020-01-24] MEDS ORDERED: Dextrose 50% Abboject 50 ML SYRINGE SLOW IVP PRN (22:09)
[2020-01-24] MEDS: HumaLOG 300 UNITS/3 ML VIAL SC PRN (22:22)
[2020-01-25] MEDS: Labetalol HCl 100 MG/20 ML VIAL SLOW IVP PRN ×3 (01:02→20:27)
[2020-01-25] MEDS: Sodium Chloride 0.45% 1,000 ML IV SCH ×3 (04:07→20:27)
[2020-01-25] MEDS: hydrALAZINE 20 MG/ML VIAL SLOW IVP PRN ×2 (04:08→10:01)
[2020-01-25 04:48] LABS: ALT (SGPT) Less than 7 U/L (8-55); AST (SGOT) 5 U/L (5-34); Albumin 2.6 g/dL (3.5-5.0); Alkaline Phosphatase 89 U/L (40-110); Anion Gap 11 mmol/L (10-20); BUN (Urea Nitrogen) 44 mg/dL (9.8-20.1); Bilirubin, Total 0.6 mg/dL (0.2-1.2); Calc. Creatinine Clearance 53 mL/min (70-130); Calcium 7.7 mg/dL (7.8-10.44); Carbon Dioxide 28 mmol/L (22-29); Chloride 110 mmol/L (98-107); Estimated GFR-MDRD 36; Globulin 2.8 g/dL (2.4-3.5); Glucose 237 mg/dL (70-105); Magnesium 1.9 mg/dL (1.6-2.6); Potassium 3.2 mmol/L (3.5-5.1); Protein, Total 5.4 g/dL (6.0-8.3); Sodium 146 mmol/L (136-145)
[2020-01-25 04:59] LABS: Hemoglobin 11.2 g/dL (12.0-16.0); Mean Corpuscular HGB CONC 33.6 g/dL (32.0-36.0); Mean Corpuscular Hemoglobin 29.9 pg (27.0-31.0); Mean Platelet Volume 8.5 fL (7.4-10.4); Platelet Count 259 thou/uL (130-400); RBC Distribution Width 13.3 % (11.5-14.5); Red Blood Cell (RBC) Count 3.75 mill/uL (4.20-5.40); White Blood Cell (WBC) Count 14.3 thou/uL (4.8-10.8)
[2020-01-25 05:00] LABS: Band 9 % (5-11); Lymphocytes 12 % (21-51); MDiff Complete? YES; Monocytes 3 % (0-10); Neutrophil 76 % (42-75)
[2020-01-25] MEDS ORDERED: Potassium Chloride 10 MEQ in Premix Bag 1 BAG IVPB SCH (05:30)
[2020-01-25] MEDS: MEROPENEM 1 GM/50 ML 1 GM in Premix Bag 1 BAG IVPB SCH (05:48)
[2020-01-25] MEDS: HumaLOG 300 UNITS/3 ML VIAL SC PRN (06:32)
--- NOTE | 2020-01-25 07:27 | RAD ---
CHEST 1 VIEW: INDICATION: Daily CCU examination while on a ventilator. COMPARISON: Prior exam dated 01/24/2020. FINDINGS: The patient has been extubated with gastric catheter removal. Lungs are clear. Heart size is mildly prominent but stable. No pleural effusion or pneumothorax evident. No acute osseous abnormality is evident. IMPRESSION: Interval extubation and resolution of the right infrahilar airspace seen on prior exam. No pneumotho rax. POS: BH
[2020-01-25] MEDS: Ondansetron PF 4 MG/2 ML Vial IVP PRN ×2 (07:36→12:33)
[2020-01-25] MEDS: Aspirin 81 mg Enteric Coated Tablet PO SCH (07:38)
[2020-01-25] MEDS: Metoprolol Tartrate 25 MG TAB PO SCH ×2 (07:38→20:26)
--- NOTE | 2020-01-25 09:53 | PRG ---
DATE OF SERVICE: 01/25/2020 SUBJECTIVE: This morning, she is somewhat better. Less encephalopathic. No shortness of breath. She was transferred out of the ICU. OBJECTIVE: VITAL SIGNS: Pulse 67, respiratory rate 22, sats are 100%, blood pressure 189/69. CHEST: Decreased breath sounds. No wheezing. CARDIAC: Normal S1, S2. No gallops. ABDOMEN: No masses. LABORATORY DATA: White count 14,000, H and H 11 and 33, platelet count is normal. Creatinine is 1.49, BUN 44. ASSESSMENT AND PLAN: Enterobacter infection, central line in place, sepsis, encephalopathy, morbid obesity. Pulmonary francois, she has improved. Continue antibiotics. Continue supportive care, PT, eventually placement. Incidentally, chest x-ray is normal. Job ID: [id number]
[2020-01-25] MEDS: Insulin Glargine 50 UNITS in Pre-Filled Syringe 1 EACH SC SCH (09:56)
--- NOTE | 2020-01-25 09:56 | PDOC.HOSPP ---
- Subjective Encounter Date: 01/25/20 Encounter Time: 09:00 Subjective: no overnight events. This morning, complains of dryness in mouth and nausea. Otherwise no complaints. - Objective Vital Signs & Weight: Vital Signs (12 hours) Temp Pulse Resp BP Pulse Ox 01/25/20 08:08 67 22 H 100 01/25/20 07:56 98 01/25/20 07:22 97.8 F 01/25/20 06:07 78 171/75 H 01/25/20 04:08 78 186/81 H 01/25/20 03:44 98.1 F 01/25/20 01:02 78 190/81 H 01/24/20 23:40 71 16 99 01/24/20 23:25 98.2 F Weight Admit Weight 183 lb Weight 192 lb 12.8 oz Most Recent Monitor Data Heart Rate from ECG 72 NIBP 180/69 NIBP BP-Mean 106 Respiration from ECG 12 SpO2 96 I&O: 01/24/20 01/25/20 01/26/20 06:59 06:59 06:59 Intake Total 2556 2252 Output Total 960 1610 Balance 1596 642 Result Diagrams: 01/25/20 04:00 01/25/20 04:00 Additional Labs: Accuchecks 01/25/20 01/25/20 01/24/20 05:54 00:02 20:37 POC Glucose 209 H 255 H 252 H 01/24/20 01/24/20 16:37 11:53 POC Glucose 229 H 97 Hospitalist ROS - Review of Systems Constitutional: denies: fever, chills, sweats, weakness, malaise, other Respiratory: denies: cough, dry, shortness of breath, hemoptysis, SOB with excertion, pleuritic pain, sputum, wheezing, other Gastrointestinal: reports: nausea, abdominal pain. denies: vomiting, diarrhea, constipation, melena, hematochezia, other Genitourinary: denies: dysuria, frequency, incontinence, hematuria, retention, other - Medication Medications: Active Medications Generic Name Dose Route Start Last Admin Trade Name Freq PRN Reason Stop Dose Admin Albuterol/Ipratropium 3 ml 01/24/20 13:00 01/25/20 08:08 Duoneb NEB 3 ml [id number] ELIA Administration Aspirin 81 mg 01/25/20 09:00 01/25/20 07:38 Ecotrin PO Not Given DAILY [facility] Hydralazine HCl 20 mg 01/24/20 15:50 01/25/20 04:08 Apresoline SLOW IVP 20 mg Q6H PRN Administration BP > 180/120 Sodium Chloride 1,000 mls @ 100 mls/hr 01/24/20 08:20 01/25/20 04:07 1/2 Normal Saline IV 1,000 mls .Q10H ELIA Administration Insulin Human Lispro 0 units 01/24/20 22:09 01/25/20 06:32 Humalog SC 2 unit .BEDTIME SLIDING SC PRN Administration Bedtime Correctional Scale Labetalol HCl 10 mg 01/23/20 08:51 01/25/20 06:07 Normodyne SLOW IVP 10 mg Q4H PRN Administration BP > 160/110 Metoprolol Tartrate 25 mg 01/24/20 21:00 01/25/20 07:38 Lopressor PO Not Given BID [facility] Ondansetron HCl 4 mg 01/24/20 22:45 01/25/20 07:36 Zofran IVP 4 mg Q6H PRN Administration Nausea/Vomiting Pantoprazole Sodium 40 mg 01/25/20 09:00 01/25/20 07:38 Protonix PO Not Given DAILY [facility] Quetiapine Fumarate 100 mg 01/24/20 21:00 01/24/20 20:23 Seroquel PO Not Given HS [facility] - Exam General Appearance: NAD, awake alert Neck: no JVD Heart: no murmur, no gallops, no rubs, irregular Heart - other findings: irregulalry irregular Respiratory: CTAB, no wheezes, no rales, no ronchi Gastrointestinal: soft, non-tender, non-distended, normal bowel sounds Psychiatric: normal affect, A&O x 3 Psychiatric - other findings: midly agitated Hosp A/P (1) Sepsis Code(s): A41.9 - SEPSIS, UNSPECIFIED ORGANISM Status: Acute (2) Acute respiratory failure with hypoxia Code(s): J96.01 - ACUTE RESPIRATORY FAILURE WITH HYPOXIA Status: Acute (3) Upper GI bleed Code(s): K92.2 - GASTROINTESTINAL HEMORRHAGE, UNSPECIFIED Status: Acute (4) Aspiration pneumonia Code(s): J69.0 - PNEUMONITIS DUE TO INHALATION OF FOOD AND VOMIT Status: Acute (5) COPD (chronic obstructive pulmonary disease) Status: Acute (6) Cerebrovascular accident (CVA) with involvement of left side of body Code(s): I63.9 - CEREBRAL INFARCTION, UNSPECIFIED Status: Acute (7) Nonadherence to medication Code(s): Z91.14 - PATIENT'S OTHER NONCOMPLIANCE WITH MEDICATION REGIMEN Status : Acute - Plan #complicated UTI #bacteremia -extubated (01/23); on RA -changed ABx to zosyn based on susceptibilities #HTN pending medication reconciliation poorly controlled after extubation due to reduced PEEP and sedation -await speech eval to resume oral antihtn -hydralazine IV PRN -labetalol IV PRN #troponinemia -EKG showing rate controlled afib with signs of inferolateral and anteroseptal ischemia; trop x 2 stable -may be demand due to sepsis -restarted aspirin; unknown if adherent to eliquis; pending medication reconciliation #T2DM stopped drip; started lantus SC, aggressive correction pending speech eval #CAD s/p stent started metoprolol and aspirin; pending medication reconciliation #dispo/PPx -Full code. transfer to medical floor -GI PPx: on therapeutic PPI -DVT PPx: lovenox
[2020-01-25] MEDS ORDERED: Potassium Chloride 40 MEQ in Premix Bag 1 BAG IVPB SCH (10:00)
[2020-01-25] MEDS: Piperacillin/Tazobactam 3.375 GM in Sodium Chloride 0.9% 100 ML IVPB SCH ×2 (12:27→17:17)
[2020-01-25] MEDS: Potassium Chloride 20 MEQ in Premix Bag 1 BAG IVPB SCH ×2 (12:28→13:15)
[2020-01-25] MEDS ORDERED: Piperacillin/Tazobactam 2.25 GM in Sodium Chloride 0.9% 100 ML IVPB SCH (14:00)
[2020-01-25] MEDS: Enoxaparin Sodium 80 MG/0.8 ML SYRINGE SC SCH (20:26)
[2020-01-26] MEDS: Piperacillin/Tazobactam 3.375 GM in Sodium Chloride 0.9% 100 ML IVPB SCH ×4 (00:08→17:00)
[2020-01-26] MEDS: hydrALAZINE 20 MG/ML VIAL SLOW IVP PRN (05:14)
[2020-01-26] MEDS: Sodium Chloride 0.45% 1,000 ML IV SCH ×2 (05:20→20:17)
[2020-01-26 06:04] LABS: Hemoglobin 11.8 g/dL (12.0-16.0)
[2020-01-26 06:21] LABS: Anion Gap 11 mmol/L (10-20); BUN (Urea Nitrogen) 27 mg/dL (9.8-20.1); Calc. Creatinine Clearance 81 mL/min (70-130); Carbon Dioxide 22 mmol/L (22-29); Chloride 112 mmol/L (98-107); Estimated GFR-MDRD 55; Potassium 3.2 mmol/L (3.5-5.1); Sodium 142 mmol/L (136-145)
[2020-01-26 06:22] LABS: Calcium 7.4 mg/dL (7.8-10.44); Glucose 226 mg/dL (70-105)
[2020-01-26] MEDS: Metoprolol Tartrate 25 MG TAB PO SCH ×2 (08:10→20:17)
[2020-01-26] MEDS: Aspirin 81 mg Enteric Coated Tablet PO SCH (08:10)
[2020-01-26] MEDS: Enoxaparin Sodium 80 MG/0.8 ML SYRINGE SC SCH (08:16)
[2020-01-26] MEDS: Insulin Glargine 50 UNITS in Pre-Filled Syringe 1 EACH SC SCH (08:16)
--- NOTE | 2020-01-26 09:30 | PRG ---
DATE OF SERVICE: 01/26/2020 SUBJECTIVE: This morning, she is awake, alert, responsive. She was transferred out of the ICU. She is in no distress. OBJECTIVE: VITAL SIGNS: Temperature 98, pulse 68, respiratory rate 16, on room air, blood pressure 151/61. GENERAL: She is legally blind unfortunately. CHEST: No wheezing or crackles. CARDIAC: Normal S1, S2. No gallops. ABDOMEN: No masses. ASSESSMENT AND PLAN: Metabolic encephalopathy, respiratory failure, sepsis syndrome. She is much improved. Disposition as per primary care physician. Pulmonary/Critical Care will sign off. Job ID: [id number]
[2020-01-26] MEDS: Potassium Chloride 20 MEQ TAB PO SCH ×2 (10:30→14:00)
[2020-01-26] MEDS: Labetalol HCl 100 MG/20 ML VIAL SLOW IVP PRN (11:23)
[2020-01-26] MEDS: HumaLOG 300 UNITS/3 ML VIAL SC SCH ×2 (12:00→16:52)
--- NOTE | 2020-01-26 12:40 | PDOC.HOSPP ---
- Subjective Encounter Date: 01/26/20 Encounter Time: 10:00 Subjective: no overnight events. This morning, feeling well, has no complaints, requests to go home. Explained that she has an infection that requires further inpatient treatment - Objective Vital Signs & Weight: Vital Signs (12 hours) Temp Pulse Resp BP BP Pulse Ox 01/26/20 11:23 69 183/83 H 01/26/20 11:21 97.4 F L 69 18 183/83 H 98 01/26/20 09:00 98 01/26/20 07:12 68 16 98 01/26/20 07:11 98.1 F 67 20 151/61 H 98 01/26/20 05:14 74 01/26/20 04:31 98 F 74 17 181/90 H 91 L 01/26/20 00:46 93 L 01/26/20 00:39 99 Weight Admit Weight 182 lb 8.684 oz Weight 195 lb Most Recent Monitor Data Heart Rate from ECG 76 NIBP 127/54 NIBP BP-Mean 78 Respiration from ECG 11 SpO2 98 I&O: 01/25/20 01/26/20 01/27/20 06:59 06:59 06:59 Intake Total 2252 1999 Output Total 1610 2425 Balance 642 -425 Result Diagrams: 01/26/20 05:56 01/26/20 05:56 Additional Labs: Accuchecks 01/26/20 01/26/20 01/25/20 11:20 04:22 20:14 POC Glucose 119 H 259 H 194 H 01/25/20 16:01 POC Glucose 193 H Hospitalist ROS - Review of Systems Constitutional: denies: fever, chills, sweats, weakness, malaise, other Respiratory: denies: cough, dry, shortness of breath, hemoptysis, SOB with excertion, pleuritic pain, sputum, wheezing, other Cardiovascular: denies: chest pain, palpitations, orthopnea, paroxysmal noc. dyspnea, edema, light headedness, other Gastrointestinal: denies: nausea, vomiting, abdominal pain, diarrhea, constipation, melena, hematochezia, other - Medication Medications: Active Medications Generic Name Dose Route Start Last Admin Trade Name Freq PRN Reason Stop Dose Admin Albuterol/Ipratropium 3 ml 01/24/20 13:00 01/26/20 07:12 Duoneb NEB 3 ml [id number] ELIA Administration Aspirin 81 mg 01/25/20 09:00 01/26/20 08:10 Ecotrin PO 81 mg DAILY ELIA Administration Enoxaparin Sodium 80 mg 01/25/20 21:00 01/26/20 08:16 Lovenox SC 80 mg 0900,2100 ELIA Administration Hydralazine HCl 20 mg 01/24/20 15:50 01/26/20 05:14 Apresoline SLOW IVP 20 mg Q6H PRN Administration BP > 180/120 Sodium Chloride 1,000 mls @ 100 mls/hr 01/24/20 08:20 01/26/20 05:20 1/2 Normal Saline IV 1,000 mls .Q10H ELIA Administration Piperacillin Sod/Tazobactam 100 mls @ 200 mls/hr 01/25/20 12:00 01/26/20 11: 06 Sod 3.375 gm/ Sodium Chloride IVPB 100 mls Q6HR ELIA Administration Insulin Human Lispro 0 units 01/24/20 22:09 01/26/20 05:15 Humalog SC 9 unit .AGGRESSIVE SLIDING PRN Administration Aggressive Correctional Scale Insulin Human Lispro 0 units 01/24/20 22:09 01/25/20 06:32 Humalog SC 2 unit .BEDTIME SLIDING SC PRN Administration Bedtime Correctional Scale Labetalol HCl 10 mg 01/23/20 08:51 01/26/20 11:23 Normodyne SLOW IVP 10 mg Q4H PRN Administration BP > 160/110 Metoprolol Tartrate 25 mg 01/24/20 21:00 01/26/20 08:10 Lopressor PO 25 mg BID ELIA Administration Ondansetron HCl 4 mg 01/24/20 22:45 01/25/20 12:33 Zofran IVP 4 mg Q6H PRN Administration Nausea/Vomiting Pantoprazole Sodium 40 mg 01/25/20 09:00 01/26/20 08:10 Protonix PO 40 mg DAILY ELIA Administration Potassium Chloride 40 meq 01/26/20 09:45 01/26/20 10:30 K-Dur PO 01/26/20 13:46 40 meq Q4H ELIA Administration Quetiapine Fumarate 100 mg 01/24/20 21:00 01/25/20 20:27 Seroquel PO 100 mg HS ELIA Administration Sodium Chloride 10 ml 01/25/20 21:00 01/26/20 08:17 Flush - Normal Saline IVF 10 ml Q12HR ELIA Administration - Exam General Appearance: NAD, awake alert Neck: no JVD Heart: RRR, no murmur, no gallops, no rubs Respiratory: CTAB, no wheezes, no rales, no ronchi Gastrointestinal: soft, non-tender, non-distended, normal bowel sounds Psychiatric: normal affect, normal behavior, A&O x 3 Hosp A/P (1) Aspiration pneumonia Code(s): J69.0 - PNEUMONITIS DUE TO INHALATION OF FOOD AND VOMIT Status: Acute (2) COPD (chronic obstructive pulmonary disease) Status: Acute (3) Cerebrovascular accident (CVA) with involvement of left side of body Code(s): I63.9 - CEREBRAL INFARCTION, UNSPECIFIED Status: Acute (4) Nonadherence to medication Code(s): Z91.14 - PATIENT'S OTHER NONCOMPLIANCE WITH MEDICATION REGIMEN Status : Acute - Plan #complicated UTI #bacteremia -extubated (01/23); on RA -changed ABx to zosyn based on susceptibilities #HTN pending medication reconciliation poorly controlled after extubation due to reduced PEEP and sedation -await speech eval to resume oral antihtn -hydralazine IV PRN -labetalol IV PRN #troponinemia -EKG showing rate controlled afib with signs of inferolateral and anteroseptal ischemia; trop x 2 stable -may be demand due to sepsis -restarted aspirin; unknown if adherent to eliquis; pending medication reconciliation #T2DM poorly controlled, adjusted regimen based on correction #CAD s/p stent started metoprolol and aspirin; pending medication reconciliation #dispo/PPx -Full code. transfer to medical floor -GI PPx: on therapeutic PPI -DVT PPx: lovenox ELOS: 1 night
[2020-01-26] MEDS ORDERED: Lorazepam 1 MG TAB PO PRN (15:20)
[2020-01-26] MEDS ORDERED: Ondansetron ODT 4 MG TAB PO PRN (15:27)
[2020-01-26] MEDS ORDERED: Losartan 25 MG TAB PO SCH (15:45)
[2020-01-26 17:40] LABS: Renal Epithelial 0-3 HPF (None Seen); Squamous Epithelial 0-3 HPF (0-3); Transitional Epithelial 0-3 HPF (None Seen); WBC/HPF Greater than 50 HPF (0-3)
[2020-01-26 17:47] LABS: Bacteria/HPF Rare-Few HPF (None Seen); Yeast-Budding 4+ HPF (None Seen)
[2020-01-26] MEDS: Montelukast Sodium 10 mg Tablet PO SCH (20:17)
[2020-01-26] MEDS ORDERED: Atorvastatin Calcium 40 MG TAB PO SCH (21:00)
[2020-01-26] MEDS ORDERED: Metoprolol Tartrate 25 MG TAB PO SCH (21:00)
[2020-01-26] MEDS ORDERED: Insulin Glargine 30 UNITS in Pre-Filled Syringe 1 EACH SC SCH (21:00)
[2020-01-27] MEDS: Piperacillin/Tazobactam 3.375 GM in Sodium Chloride 0.9% 100 ML IVPB SCH ×2 (00:40→05:35)
[2020-01-27 06:44] VITALS: BMI 31.4
[2020-01-27] MEDS: HumaLOG 300 UNITS/3 ML VIAL SC SCH (08:25)
[2020-01-27] MEDS: Sodium Chloride 0.45% 1,000 ML IV SCH (08:25)
[2020-01-27] MEDS: Montelukast Sodium 10 mg Tablet PO SCH (08:26)
[2020-01-27] MEDS: Aspirin 81 mg Enteric Coated Tablet PO SCH (08:26)
[2020-01-27] MEDS: Metoprolol Tartrate 25 MG TAB PO SCH (08:26)
[2020-01-27] MEDS ORDERED: Levothyroxine Sodium 112 MCG TAB PO SCH (09:00)
[2020-01-27] MEDS ORDERED: Losartan 25 MG TAB PO SCH (09:00)
[2020-01-27] MEDS ORDERED: Saccharomyces boulardii 250 MG CAP PO SCH (09:00)
[2020-01-27] MEDS ORDERED: Aspirin Chewable 81 MG TAB PO SCH (09:00)
[2020-01-27] MEDS ORDERED: Enoxaparin Sodium 40 MG/0.4 ML SYRINGE SC SCH (09:00)
[2020-01-27] MEDS ORDERED: [UNRECOGNIZED DRUG - REMARK] IVPB PRN (10:37)
[2020-01-27 11:38] VITALS: TEMP 98.2
[2020-01-27] MEDS ORDERED: HumaLOG 300 UNITS/3 ML VIAL SC SCH (12:00)
[2020-01-27] MEDS ORDERED: MEROPENEM 1 GM/50 ML 1 GM in Premix Bag 1 BAG IVPB SCH (14:00)
--- NOTE | 2020-01-27 15:12 | SPC ---
PICC PLACEMENT ULTRASOUND-GUIDED VENOUS ACCESS: (Peripherally inserted central catheter) DATE: 01/27/2020 HISTORY: 59-year-old female with pneumonia and septicemia requiring long-term IV antibiotics. TECHNIQUE: Catheter caliber: 5 Urdu Catheter trim length:43 cm Catheter lumen number:single Catheter tip location:right atrium Vein accessed: Exchange of existing right arm midline catheter. Total fluoroscopy time: 1 min. Dose area product: 6927 mGy*cm^2 Signed, informed consent was obtained. The arm and the existing midline venous catheter were prepped and draped in the usual sterile fashion. A 0.018 inch guidewire was advanced through the midline catheter and into the vein. Under fluoroscopic guidance, the guidewire was advanced to the superior v patricia cava. The PICC was flushed and trimmed to the appropriate length. The midline catheter was exchanged over the guidewire for a 5 Urdu peel-away dilator sheath. The dilator was exchanged over the guidewire for the PICC, which was then further advanced under fluoroscopy. The sheath and guidewire were removed. The PICC was flushed again and secured in place at the arm after adjustment o f tip position. The patient tolerated the procedure well. There was no complication. IMPRESSION: Successful placement of PICC (peripherally inserted central catheter) via exchange of existing right arm midline catheter.
[2020-01-27 15:56] VITALS: BP 165/78
[2020-01-27] MEDS ORDERED: Insulin Glargine 25 UNITS in Pre-Filled Syringe 1 EACH SC SCH (21:00)
--- NOTE | 2020-01-28 02:41 | DIS ---
DATE OF ADMISSION: 01/22/2020 DATE OF DISCHARGE: 01/27/2020 HOSPITAL COURSE: Ms. Delgado is a 59-year-old female with a medical history of recurrent admissions for nausea, vomiting associated with diabetic gastroparesis, gastritis, duodenitis, CVA with residual left weakness, coronary artery disease, status post stent placement, and medication nonadherence, who was brought by the EMS after the found her unconscious, foaming from the mouth. She was diagnosed with aspiration pneumonitis and sepsis due to complicated urinary tract infection. The patient was started on broad-spectrum antibiotics and improved promptly. Based on culture susceptibility, the patient was continued on meropenem and continued treatment as an outpatient to complete a total of 2 weeks. On the day of discharge, the patient was hemodynamically stable with no complaints. She was discharged to a fci with detailed instructions regarding aspiration risk as well as antibiotic treatment. She is scheduled to follow up with primary care physician for post hospitalization followup as well as Irizarry trial. PHYSICAL EXAMINATION: VITAL SIGNS: Blood pressure 152/83, temperature 98.2, pulse 60, respiratory rate 20, and oxygen saturation 96% on room air. GENERAL: Lying comfortably in bed. Exhibits agitated behavior when does not get what she requests. NECK: No JVD. HEART: Regular rate and rhythm. No murmurs, gallops, or rubs. RESPIRATORY: Clear to auscultation bilaterally. No wheezing, rales, or rhonchi. GI: Soft, nontender, nondistended. Normal bowel sounds. PSYCHIATRIC: Proper affect. Agitated behavior. Alert and oriented x3. MEDICATION LIST: New medications: 1. Meropenem 1 g q.8 hours IV for a total of 10 days. 2. Losartan 50 mg daily. Continued medications: Rest of the patient's medications were continued without modifications. Job ID: [id number]
--- NOTE | 2020-01-29 11:21 | EKG ---
Test Reason : Blood Pressure : / mmHG Vent. Rate : 102 BPM Atrial Rate : 102 BPM P-R Int : 148 ms QRS Dur : 124 ms QT Int : 412 ms P-R-T Axes : 059 068 026 degrees QTc Int : 536 ms Sinus tachycardia with Premature atrial complexes Right bundle branch block Abnormal ECG Confirmed by ELINA MUELLER DO ([id number]), production editor KAL DSOUZA ([id number]) on 01/29/2020 11:21:20 AM Referred By: Confirmed By:ELINA MUELLER DO
--- NOTE | 2020-01-30 08:28 | PQF ---
DAVID GONZALES, GATO [id number] [id number] CLINICAL DOCUMENTATION CLARIFICATION FORM: POST DISCHARGE Addendum to original discharge summary date: ____ Late entry note date: __ DATE: 01/30/2020 ATTN:Gato Mccurdy Please exercise your independent, professional judgment in responding to the clarification form. Clinical indicators are provided on the bottom of this form for your review Please check appropriate box(s): Conflicting documentation was noted in the Medical Record, please clarify if patient is being treated/monitored for: [ x ] Sepsis [ ] Sepsis syndrome [ ] Other diagnosis [ ] Unable to determine For continuity of documentation, please document condition throughout progress notes and discharge summary. Thank You. CLINICAL INDICATORS - SIGNS / SYMPTOMS/ LABS HP 01/21 "sepsis" Consult 01/22 "sepsis syndrome" DS 01/26 "sepsis due to complicated UTI" 01/21 "Acute respiratory failure with hypoxia" HP 01/21 "Aspiration pneumonia" ED Notes 01/21 "Altered mental status" ED Notes 01/21 "septic shock from UTI" HP 01/21 "acute encephalpathy hyppoxci vs. toxic. vs infectious" HP 01/21 "UTI" Consult 01/22 "hypotensive shock presumably from sepsis" PN 01/24 "Bacteremia" Vital Signs 01/21: Temp=99.2 Pulse=82 BP=85/62 Respi=10 Lab WBC: 01/21=22.5 01/23=20.4 01/24=14.3 Labs Lactate: 01/21=3.5 Labs Procalcitonin: 01/21=0.09 Blood culture 01/21 "Blood culture:coagulase neg staphylococcus" RISK FACTORS 59 years old female-HP 01/21 DM-HP 01/21 CKD-HP 01/21 Morbid obesity-HP 01/21 Aspiration pneumonia- 01/21 UTI-HP 01/21 TREATMENT Intubation and ventilation-HP 01/21 IVF-HP 01/21 Epinephrine 1mg IV-OCT 06 Maxipime 2gm IV-OCT 06 Vancomycin 2gm IV-OCT 06 Zonsyn 2.25gm IV-OCT 06 Blood and urine culture-Collected 01/21 (This form is maintained as a part of the permanent medical record) 2014 [employer] All Rights Reserved [email or web address]
== END 2020-01-27 16:00 | DRG 871 ==
LOC: EDBD 16:58 → ERS 16:58 → CCU 17:21 → IMCU/EMU 01-24 13:20 → T4-A 01-25 12:18
PROVIDERS: ADMIT Internal Medicine; ATTEND Internal Medicine
PROC: 3E033XZ Introduction of Vasopressor into Peripheral Vein, Percutaneous Approach (ICD-10-PCS; 2020-01-22)
PROC: 30233N1 Transfusion of Nonautologous Red Blood Cells into Peripheral Vein, Percutaneous Approach (ICD-10-PCS; 2020-01-22)
PROC: 0BH17EZ Insertion of Endotracheal Airway into Trachea, Via Natural or Artificial Opening (ICD-10-PCS; 2020-01-22)
PROC: 5A1945Z Respiratory Ventilation, 24-96 Consecutive Hours (ICD-10-PCS; 2020-01-22)
PROC: 02HV33Z Insertion of Infusion Device into Superior Vena Cava, Percutaneous Approach (ICD-10-PCS; principal; 2020-01-27)
PROC: B5181ZA Fluoroscopy of Superior Vena Cava using Low Osmolar Contrast, Guidance (ICD-10-PCS; 2020-01-27)
PROC: B548ZZA Ultrasonography of Superior Vena Cava, Guidance (ICD-10-PCS; 2020-01-27)
DX: A41.9 Sepsis, unspecified organism (principal); J96.01 Acute respiratory failure with hypoxia; J69.0 Pneumonitis due to inhalation of food and vomit; G93.41 Metabolic encephalopathy; I69.354 Hemiplegia and hemiparesis following cerebral infarction affecting left non-dominant side; K92.2 Gastrointestinal hemorrhage, unspecified; N39.0 Urinary tract infection, site not specified; R57.9 Shock, unspecified; N17.9 Acute kidney failure, unspecified; I24.8 Other forms of acute ischemic heart disease; K21.0 Gastro-esophageal reflux disease with esophagitis; I25.2 Old myocardial infarction; E11.42 Type 2 diabetes mellitus with diabetic polyneuropathy; E03.9 Hypothyroidism, unspecified; E78.5 Hyperlipidemia, unspecified; I12.9 Hypertensive chronic kidney disease with stage 1 through stage 4 chronic kidney disease, or unspecified chronic kidney disease; J44.9 Chronic obstructive pulmonary disease, unspecified; N18.9 Chronic kidney disease, unspecified; E66.01 Morbid (severe) obesity due to excess calories; E11.43 Type 2 diabetes mellitus with diabetic autonomic (poly)neuropathy; K31.84 Gastroparesis; K29.70 Gastritis, unspecified, without bleeding; K29.80 Duodenitis without bleeding; M19.90 Unspecified osteoarthritis, unspecified site; I25.10 Atherosclerotic heart disease of native coronary artery without angina pectoris; F17.210 Nicotine dependence, cigarettes, uncomplicated; Z20.828 Contact with and (suspected) exposure to other viral communicable diseases; B95.2 Enterococcus as the cause of diseases classified elsewhere; Z79.01 Long term (current) use of anticoagulants; Z79.82 Long term (current) use of aspirin; Z79.4 Long term (current) use of insulin; Z79.51 Long term (current) use of inhaled steroids; Z79.899 Other long term (current) drug therapy; Z68.31 Body mass index [BMI] 31.0-31.9, adult; Z91.14 Patient's other noncompliance with medication regimen; Z95.5 Presence of coronary angioplasty implant and graft; Z98.51 Tubal ligation status; E11.22 Type 2 diabetes mellitus with diabetic chronic kidney disease
CPT/HCPCS: 31500; 36415; 36416; 36430; 36556; 36569; 51702; 70450; 71045; 80048; 80053; 80202; 81003; 81015; 82533; 82550; 82553; 82805; 83605; 83735; 83880; 84145; 84443; 84484; 85007; 85014; 85018; 85025; 85027; 85610; 85730; 86850; 86900; 86901; 87040; 87077; 87086; 87149; 87186; 87635; 93005; 94002; 94003; 94640; 96361; 96365; 96366; 96368; 96374; 96375; 99292; C1751; C9113; J0171; J0360; J0692; J1644; J1650; J1815; J2185; J2354; J2405; J2543; J2704; J3010; J3370; J3480; J3490; J7030; J7050; J7620; P9016; U0003